=== PATIENT | male | born 1990 | race Caucasian/White ===

== ENCOUNTER 2019-01-12 12:33 | Emergency (ER) | payer MEDICAID ==
[~2019-01-12] VITALS: Ht 180.3 cm; Wt 86.2 kg
[2019-01-12 12:43] VITALS: BP 151/72
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
--- NOTE | 2019-01-12 13:25 | NUR ---
XRAY AT BEDSIDE.
[2019-01-12] MEDS ORDERED: KETOROLAC 30 MG/ML VIAL IM ONE (13:30)
--- NOTE | 2019-01-12 13:35 | NUR ---
PT DECLINED TORADOL ADMIN. ER AWARE. ORDERS RECIEVED FOR PO MED.
[2019-01-12] MEDS ORDERED: IBUPROFEN 600 MG TAB PO ONE (13:40)
--- NOTE | 2019-01-12 13:40 | NUR ---
XRAY AT BEDSIDE
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
[2019-01-12 14:21] VITALS: BP 138/69
== END 2019-01-12 14:21 | disposition home or self-care (01) ==
LOC: MED 12:33
DX: S93.524A Sprain of metatarsophalangeal joint of right lesser toe(s), initial encounter (principal); S80.811A Abrasion, right lower leg, initial encounter; Z98.890 Other specified postprocedural states; X58.XXXA Exposure to other specified factors, initial encounter; Y93.55 Activity, bike riding; Y92.89 Other specified places as the place of occurrence of the external cause; Y99.8 Other external cause status
CPT/HCPCS: 73590; 73630; 99283; J1885

== ENCOUNTER 2019-01-13 18:32 | Emergency (ER) | payer MEDICAID ==
[~2019-01-13] VITALS: Ht 180.3 cm; Wt 81.6 kg
[2019-01-13 18:36] VITALS: BP 156/82
--- NOTE | 2019-01-13 18:36 | NUR ---
PT AMB TO BED 7 WITH STEADY GAIT. TRIAGE AT BEDSIDE
[2019-01-13] MEDS ORDERED: KETOROLAC 60 MG/2 ML VIAL IM ONE ×2 (18:55→19:14)
--- NOTE | 2019-01-13 18:57 | NUR ---
PT PRESENTS TO ED WITH C/O RIGHT FOOT PAIN. PT STATES PAIN IS 10/10 AT THIS TIME. +SWOLLEN/REDNESS. ERMD TO EVALUATE PT.
[2019-01-13 19:15] VITALS: BP 140/89
--- NOTE | 2019-01-13 19:15 | NUR ---
Patient discharged with v/s stable. Written and verbal after care instructions given and explained. Patient alert, oriented and verbalized understanding of instructions. Ambulatory with steady gait. All questions addressed prior to discharge. ID band removed. Patient advised to follow up with PMD. Rx of KEFLEX, BACTRIM, NORCO given. Patient educated on indication of medication including possible reaction and side effects. Opportunity to ask questions provided and answered.
== END 2019-01-13 19:15 | disposition home or self-care (01) ==
LOC: MED 18:32
DX: L02.611 Cutaneous abscess of right foot (principal); F12.10 Cannabis abuse, uncomplicated
CPT/HCPCS: 96372; 99283; J1885